=== PATIENT | male | born 1980 | race American Indian/Alaskan Native ===

== ENCOUNTER 2021-03-11 20:17 | Emergency (ER) | payer SELFPAY ==
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
[2021-03-11] MEDS ORDERED: oxyCODONE /ACETAMINOPHEN 5-325MG TAB PO ONE (23:11)
[2021-03-12 03:28] VITALS: BP 141/83
== END 2021-03-12 01:40 | disposition home or self-care (01) ==
LOC: ED 20:17
DX: S00.12XD Contusion of left eyelid and periocular area, subsequent encounter (principal); S09.90XA Unspecified injury of head, initial encounter; V49.49XA Driver injured in collision with other motor vehicles in traffic accident, initial encounter; Y93.89 Activity, other specified; Y92.89 Other specified places as the place of occurrence of the external cause; Y99.8 Other external cause status
CPT/HCPCS: 70450; 72125; 99283